=== PATIENT | female | born 1975 | race African-American/Black ===

== ENCOUNTER 2017-09-26 13:28 | Observation (INO) | payer OTHER ==
[2017-09-26] VITALS (8 sets, daily range): BP systolic 132–191; BP diastolic 62–92; PULSE 75–93; RESP 16–20; TEMP 96.7–99.3; O2SAT 94–98
[~2017-09-26] VITALS: Ht 167.6 cm; Wt 127.0 kg
[~2017-09-26 13:28] MED LIST: ATEN25TA PO; CIPR-9 PO; CLON0.1T PO; HYDR12.57 PO; LISI10TA3 PO; METO25TA3 PO; METR-1 PO
--- NOTE | 2017-09-26 14:01 | PD ---
HPI Chief Complaint: Headache Time Seen by Provider: 13:44 Travel History International Travel<30 days: No Contact w/Intl Traveler<30days: No Traveled to known affect area: No History of Present Illness HPI 42-year-old female presents to the emergency Department with complaint of intermittent chest pain since Saturday and headache since Saturday with worsening of headache yesterday. She was evaluated at [facility] on Saturday for her chest pain and headache. She said she had an EKG, chest x-ray, cardiac enzymes and were all within normal limits per the patient. She has history of benign brain tumors and has a neurosurgeon that she follows up within [place]. She doesn't remember the doctor's name or what her next appointment is. She did last have a CT scan of her brain in May and says her brain tumors or being observed. Reports chest pain is left-sided, on and off, describes as an ache, rates 7 out of 10, and radiates to her back. Denies heart palpitations or shortness of breath. Has never had a stress test. Denies tobacco use. Has had blood pressure and takes hydrochlorothiazide, amlodipine, clonidine, lisinopril, metipranolol and is complaining with medications. 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 Headache was gradual onset. Describes the headache as a throbbing sensation. Rates headache 9/10. Location is the front and the back of the head. Reports nausea without vomiting. Reports feeling tired and photophobia. Took BC powder with no relief of symptoms. Has no known allergies. Primary care provider is Dr. Effie Brown. History of hypertension. Has no other medical complaints. No known allergies. No other modifying factors or associated signs and symptoms. PFSH Past Medical History Hypertension: Yes Neurologic: Yes (brain tumors) ?: Unknown Tubal Ligation: Yes Past Surgical History Abdominal Surgery: Yes (HERNIA) Gynecologic Surgery: Yes (HYSTERECTOMY/TUBAL) Hysterectomy: Yes Social History Alcohol Use: Yes (occasional) Tobacco Use: No Substance Use: No Allergies-Medications (Allergen,Severity, Reaction): Coded Allergies: No Known Allergies (Unverified , 09/26/17) Reported Meds & Prescriptions Reported Meds & Active Scripts Active Reported Hydrochlorothiazide 12.5 Mg Cap 12.5 Mg PO DAILY Clonidine (Clonidine HCl) 0.1 Mg Tab 0.1 Mg PO BID Lisinopril 10 Mg Tab 10 Mg PO DAILY Metoprolol Tartrate 25 Mg Tab 25 Mg PO BID Atenolol 25 Mg Tab 12.5 Mg PO BID Review of Systems Except as stated in HPI: all other systems reviewed are Neg Physical Exam Narrative GENERAL: Well-nourished, well-developed black female patient, in no acute distress SKIN: Warm and dry. HEAD: Atraumatic. Normocephalic. No facial droop noted. Tongue midline. EYES: Pupils equal and round at 3 mm with brisk reaction. No scleral icterus. No injection or drainage. PERRLA. EOMI. ENT: Mucosa pink and moist. Airway patent. NECK: Trachea midline. No lymphadenopathy. CARDIOVASCULAR: Regular rate and rhythm. No murmur appreciated. RESPIRATORY: No accessory muscle use. Clear to auscultation. Breath sounds equal bilaterally. GASTROINTESTINAL: Obese. MUSCULOSKELETAL: No obvious deformities. No clubbing. No cyanosis. No edema. NEUROLOGICAL: Awake and alert. Oriented 3. No obvious cranial nerve deficits. Motor grossly within normal limits. Normal speech. No ataxia. No mid -line drift. Moves all extremities. 5/5 strength to all extremities. PSYCHIATRIC: Appropriate mood and affect; insight and judgment normal. Data Data Last Documented VS Vital Signs Date Time Temp Pulse Resp B/P (MAP) Pulse Ox O2 Delivery O2 Flow Rate FiO2 09/26/17 13:30 98.9 82 16 191/92 (125) [address] Brain W/O Iv Contrast(Rout) (09/26/17 ) Electrocardiogram (09/26/17 14:12) Basic Metabolic Panel (Bmp) (09/26/17 14:12) Ckmb (Isoenzyme) Profile (09/26/17 14:12) Complete Blood Count With Diff (09/26/17 14:12) Magnesium (Mg) (09/26/17 14:12) Prothrombin Time / Inr (Pt) (09/26/17 14:12) Act Partial Throm Time (Ptt) (09/26/17 14:12) Troponin I (09/26/17 14:12) Chest, Single Ap (09/26/17 14:12) Ecg Monitoring (09/26/17 14:12) Iv Access Insert/Monitor (09/26/17 14:12) Oximetry (09/26/17 14:12) Oxygen Administration (09/26/17 14:12) Sodium Chloride 0.9% Flush (Ns Flush) (09/26/17 14:15) Ketorolac Inj (Toradol Inj) (09/26/17 15:45) Admit Order (Ed Use Only) (09/26/17 15:42) Labs Laboratory Tests Test 09/26/17 14:20 White Blood Count 6.0 TH/MM3 Red Blood Count 4.14 MIL/MM3 Hemoglobin 11.5 GM/DL Hematocrit 34.5 % Mean Corpuscular Volume 83.4 FL Mean Corpuscular Hemoglobin 27.8 PG Mean Corpuscular Hemoglobin Concent 33.3 % Red Cell Distribution Width 13.6 % Platelet Count 377 TH/MM3 Mean Platelet Volume 7.1 FL Neutrophils (%) (Auto) 51.3 % Lymphocytes (%) (Auto) 35.7 % Monocytes (%) (Auto) 9.2 % Eosinophils (%) (Auto) 2.7 % Basophils (%) (Auto) 1.1 % Neutrophils # (Auto) 3.1 TH/MM3 Lymphocytes # (Auto) 2.1 TH/MM3 Monocytes # (Auto) 0.5 TH/MM3 Eosinophils # (Auto) 0.2 TH/MM3 Basophils # (Auto) 0.1 TH/MM3 CBC Comment DIFF FINAL Differential Comment Prothrombin Time 11.2 SEC Prothromb Time International Ratio 1.0 RATIO Activated Partial Thromboplast Time 27.6 SEC Blood Urea Nitrogen 10 MG/DL Creatinine 0.87 MG/DL Random Glucose 87 MG/DL Calcium Level 8.7 MG/DL Magnesium Level 2.0 MG/DL Sodium Level 135 MEQ/L Potassium Level 3.6 MEQ/L Chloride Level 101 MEQ/L Carbon Dioxide Level 26.4 MEQ/L Anion Gap 8 MEQ/L Estimat Glomerular Filtration Rate 86 ML/MIN Total Creatine Kinase 96 U/L Troponin I LESS THAN 0.02 NG/ML MDM Medical Decision Making Medical Screen Exam Complete: Yes Emergency Medical Condition: Yes Medical Record Reviewed: Yes Differential Diagnosis Acute headache, hypertension, chest pain, intracranial hemorrhage Narrative Course 42-year-old female with headache and chest pain. Was evaluated at [facility] on Saturday for same complaint. I spoke with Dr. Gautam and he agrees patient is stable For chest pain, CT of the head, and probable admission for observation to the chest pain center. IV site obtained. Chest pain protocol ordered. CT head ordered. 1541: CBC, BMP, coags unremarkable. Troponin less than 0.02. EKG was normal sinus rhythm and without ST elevation or depression. Chest x-ray and CT head concludes: Last 24 hours Impressions Chest X-Ray 09/26/17 1412 Signed Impressions: Service Date/Time: , September 26, 2017 14:33 - CONCLUSION: No acute disease. Adrian Celeste Jr., MD Head CT 09/26/17 0000 Signed Impressions: Service Date/Time: , September 26, 2017 14:51 - CONCLUSION: Normal examination. Adrian Celeste Jr., MD Toradol ordered. Patient admitted to chest pain center for observation. Physician Communication Physician Communication [employer] Diagnosis Primary Impression: Chest pain Qualified Codes: R07.9 - Chest pain, unspecified Additional Impression: Headache Qualified Codes: R51 - Headache Admitting Information Admitting Physician Requests: Observation Cyndie Rodrigez Sep 26, 2017 14:01
[2017-09-26] MEDS ORDERED: SODIUM CHLORIDE 0.9% FLUSH 10 ML FLUSH IVF PRN (14:15)
[2017-09-26 14:39] LABS: AUTOMATED NEUTROPHIL # 3.1 TH/MM3 (1.8-7.7); BASOPHIL # 0.1 TH/MM3 (0-0.2); BASOPHIL % 1.1 % (0.0-2.0); EOSINOPHIL # 0.2 TH/MM3 (0-0.4); EOSINOPHIL % 2.7 % (0.0-4.0); HEMATOCRIT 34.5 % (35.0-46.0); HEMOGLOBIN 11.5 GM/DL (11.6-15.3); LYMPH % 35.7 % (9.0-44.0); LYMPHOCYTE # 2.1 TH/MM3 (1.0-4.8); MEAN CELL VOLUME 83.4 FL (80.0-100.0); MEAN CORPUSCULAR HEMOGLOBIN 27.8 PG (27.0-34.0); MEAN CORPUSCULAR HGB CONC 33.3 % (32.0-36.0); MEAN PLATELET VOLUME 7.1 FL (7.0-11.0); MONO % 9.2 % (0.0-8.0); MONOCYTE # 0.5 TH/MM3 (0-0.9); NEUT % 51.3 % (16.0-70.0); PLATELET COUNT 377 TH/MM3 (150-450); RED BLOOD COUNT 4.14 MIL/MM3 (4.00-5.30); RED CELL DISTRIBUTION WIDTH 13.6 % (11.6-17.2)
[2017-09-26 14:54] LABS: BICARBONATE 26.4 MEQ/L (21.0-32.0); BLOOD UREA NITROGEN 10 MG/DL (7-18); CALCIUM 8.7 MG/DL (8.5-10.1); CHLORIDE 101 MEQ/L (98-107); CREATININE 0.87 MG/DL (0.50-1.00); GLOMERULAR FILTRATION RATE 86 ML/MIN (>89); GLUCOSE,RANDOM 87 MG/DL (74-106); SODIUM (NA) 135 MEQ/L (136-145)
[2017-09-26 14:58] LABS: TROPONIN I LESS THAN 0.02 NG/ML (0.02-0.05)
[2017-09-26 15:04] LABS: PROTHROMBIN TIME - PATIENT 11.2 SEC (9.8-11.6)
--- NOTE | 2017-09-26 15:08 | RADRPT ---
EXAM DATE/TIME: 09/26/2017 14:33 [facility] COMPARISON: No previous studies available for comparison. INDICATIONS : Shortness of breath. MEDICAL HISTORY : Brain tumors. Migrains. SURGICAL HISTORY : Hysterectomy. ENCOUNTER: Initial ACUITY: 1 day PAIN SCORE: 0/10 LOCATION: Bilateral chest FINDINGS: A single view of the chest demonstrates the lungs to be symmetrically aerated without evidence of mas s, infiltrate or effusion. The cardiomediastinal contours are unremarkable. Osseous structures are intact. CONCLUSION: No acute disease. Adrian Celeste Jr., MD on September 26, 2017 at 15:04 Board Certified Radiologist. This report was verified electronically.
--- NOTE | 2017-09-26 15:32 | RADRPT ---
EXAM DATE/TIME: 09/26/2017 14:51 [facility] COMPARISON: No previous studies available for comparison. INDICATIONS : Cephalgia. RADIATION DOSE: 56.35 CTDIvol (mGy) MEDICAL HISTORY : Hypertension. Hernia. SURGICAL HISTORY : Hysterectomy. Tubal ligation. ENCOUNTER: Initial ACUITY: 1 day PAIN SCALE: 5/10 LOCATION: cranial TECHNIQUE: Multiple contiguous axial images were obtained of the head. Using automated exposure control and adj ustment of the mA and/or kV according to patient size, radiation dose was kept as low as reasonably a chievable to obtain optimal diagnostic quality images. DICOM format image data is available electro nically for review and comparison. FINDINGS: CEREBRUM: The ventricles are normal for age. No evidence of midline shift, mass lesion, hemorrhage or acute in farction. No extra-axial fluid collections are seen. POSTERIOR FOSSA: The cerebellum and brainstem are intact. The 4th ventricle is midline. The cerebellopontine angle i s unremarkable. EXTRACRANIAL: The visualized portion of the orbits is intact. SKULL: The calvaria is intact. No evidence of skull fracture. CONCLUSION: Normal examination. Adrian Celeste Jr., MD on September 26, 2017 at 15:14 Board Certified Radiologist. This report was verified electronically.
[2017-09-26] MEDS ORDERED: KETOROLAC TROMETHAMINE 30 MG/ML (IVP) VIAL IV PUSH ONE (15:45)
[2017-09-26] MEDS ORDERED: ALPRAZolam 0.25 MG TAB PO PRN (16:45)
[2017-09-26] MEDS ORDERED: ONDANSETRON HCL 4 MG/2 ML VIAL IV PUSH PRN (16:45)
[2017-09-26] MEDS ORDERED: ACETAMINOPHEN 500 MG CPLT PO PRN (16:45)
[2017-09-26] MEDS ORDERED: SODIUM CHLORIDE 0.9% FLUSH 5 ML FLUSH IVF PRN (16:45)
--- NOTE | 2017-09-26 16:47 | HHI.HP ---
HPI Primary Care Physician Non-Staff Chief Complaint Chest pain and headache History of Present Illness This is a 42-year-old female that presents to ED via private vehicle with a complaint of a left-sided chest discomfort that radiates to the neck and back. This is been constantly there for 4 days. Found nothing to worsen or improve the discomfort. Has not noticed shortness of breath, nausea, or diaphoresis with the discomfort. She also complains of a frontal headache that she also has had for last several days. States she has history of meningiomas and is followed for this. Has had photophobia. Denies numbness tingling or weakness in extremities. Denies recent illness. Denies fevers or chills. Denies neck stiffness. Denies recent travel. Review of Systems General: Patient denies fevers, chills recent, and recent travel HEENT: Complains of frontal headache. Patient denies sore throat, difficulty swallowing. Cardiovascular: Has the chest discomfort as mentioned above. Denies sensation of heart beating rapidly or irregularly. No syncope. Denies diaphoresis. Respiratory: Denies shortness of breath or inspirational chest discomfort. Denies coughing wheezing or hemoptysis. GI: Patient denies nausea, vomiting, diarrhea, abdominal pain, bloody stools. Musculoskeletal: Patient denies joint pain or edema. Denies calf pain or edema. Neurovascular: Patient denies numbness, tingling, weakness in extremities. Complains of frontal headache. Endocrine: Denies polyuria and polydipsia. Hematologic: Denies easy bruising. Skin: Denies rash or itching. Past Family Social History Allergies: Coded Allergies: No Known Allergies (Unverified , 09/26/17) Past Medical History Hypertension, meningioma, history of hyperlipidemia but now medication for some time. Denies diabetes and known CAD. Past Surgical History Hysterectomy. Hernia repair. Reported Medications Reported Meds & Active Scripts Active Reported Hydrochlorothiazide 12.5 Mg Cap 12.5 Mg PO DAILY Clonidine (Clonidine HCl) 0.1 Mg Tab 0.1 Mg PO BID Lisinopril 10 Mg Tab 10 Mg PO DAILY Metoprolol Tartrate 25 Mg Tab 25 Mg PO BID Atenolol 25 Mg Tab 12.5 Mg PO BID Active Ordered Medications Current Medications Medications (Trade) Dose Ordered Sig/Paco Route Start Time Stop Time Status Last Admin (NS Flush) 2 ml UNSCH PRN IVF 09/26/17 14:15 Family History Denies family history of CAD. Social History Lifetime nonsmoker. Denies illicit drugs. Has occasional alcohol. Physical Exam Vital Signs Vital Signs Date Time Temp Pulse Resp B/P (MAP) Pulse Ox O2 Delivery O2 Flow Rate FiO2 09/26/17 16:38 09/26/17 16:00 80 17 132/62 (85) 97 Room Air 09/26/17 13:30 98.9 82 16 191/92 (125) 97 Physical Exam GENERAL: This is a well-nourished, well-developed patient, in no apparent distress. Patient speaks in clear complete sentences. Patient is pleasant. HEENT: Head is atraumatic and normocephalic. Neck is supple without lymphadenopathy and trachea is midline. No JVD or carotid bruits. CARDIOVASCULAR: Regular rate and rhythm without murmurs, gallops, or rubs. RESPIRATORY: Clear to auscultation. Breath sounds equal bilaterally. No wheezes , rales, or rhonchi. Chest wall is nontender. No use of accessory muscles. GASTROINTESTINAL: Abdomen is nontender, nondistended. Abdomen soft. No obvious pulsatile mass or bruit. No CVA tenderness. Strong femoral pulses bilaterally. Normal bowel sounds in all quadrants. MUSCULOSKELETAL: Patient is moving upper and lower extremities freely. No calf tenderness or edema, no Homans sign. Strong pulses in upper and lower extremities. NEUROLOGICAL: Patient is alert and oriented. Cranial nerves 2-12 are grossly intact. No focal deficits and speech is clear. SKIN: No rash and turgor is normal. Laboratory Laboratory Tests Test 09/26/17 14:20 White Blood Count 6.0 Red Blood Count 4.14 Hemoglobin 11.5 Hematocrit 34.5 Mean Corpuscular Volume 83.4 Mean Corpuscular Hemoglobin 27.8 Mean Corpuscular Hemoglobin Concent 33.3 Red Cell Distribution Width 13.6 Platelet Count 377 Mean Platelet Volume 7.1 Neutrophils (%) (Auto) 51.3 Lymphocytes (%) (Auto) 35.7 Monocytes (%) (Auto) 9.2 Eosinophils (%) (Auto) 2.7 Basophils (%) (Auto) 1.1 Neutrophils # (Auto) 3.1 Lymphocytes # (Auto) 2.1 Monocytes # (Auto) 0.5 Eosinophils # (Auto) 0.2 Basophils # (Auto) 0.1 CBC Comment DIFF FINAL Differential Comment Prothrombin Time 11.2 Prothromb Time International Ratio 1.0 Activated Partial Thromboplast Time 27.6 Blood Urea Nitrogen 10 Creatinine 0.87 Random Glucose 87 Calcium Level 8.7 Magnesium Level 2.0 Sodium Level 135 Potassium Level 3.6 Chloride Level 101 Carbon Dioxide Level 26.4 Anion Gap 8 Estimat Glomerular Filtration Rate 86 Total Creatine Kinase 96 Troponin I LESS THAN 0.02 Result Diagram: 09/26/17 1420 09/26/17 1420 Imaging Last 48 hours Impressions Chest X-Ray 09/26/17 1412 Signed Impressions: Service Date/Time: September 14:33 - CONCLUSION: No acute disease. Adrian Celeste Jr., MD Head CT 09/26/17 0000 Signed Impressions: Service Date/Time: September 14:51 - CONCLUSION: Normal examination. Adrian Celeste Jr., MD Course Initial EKG is sinus rhythm without significant ST segment depressions or elevations. Caprini VTE Risk Assessment Caprini VTE Risk Assessment: No/Low Risk (score <= 1) Caprini Risk Assessment Model Point Value = 1 Point Value = 2 Point Value = 3 Point Value = 5 Age 41-60 Minor surgery BMI > 25 kg/m2 Swollen legs Varicose veins or History of unexplained or recurrent spontaneous Oral contraceptives or hormone replacement Sepsis (< 1 month) Serious lung disease, including pneumonia (< 1 month) Abnormal pulmonary function Acute myocardial infarction Congestive heart failure (< 1 month) History of inflammatory bowel disease Medical patient at bed rest Age 61-74 Arthroscopic surgery Major open surgery (> 45 min) Laparoscopic surgery (> 45 min) Malignancy Confined to bed (> 72 hours) Immobilizing plaster cast Central venous access Age >= 75 History of VTE Family history of VTE Factor V Leiden Prothrombin [id number] Lupus anticoagulant Anticardiolipin antibodies Elevated serum homocysteine Heparin-induced thrombocytopenia Other congenital or acquired thrombophilia Stroke (< 1 month) Elective arthroplasty Hip, pelvis, or leg fracture Acute spinal cord injury (< 1 month) Prophylaxis Regimen Total Risk Factor Score Risk Level Prophylaxis Regimen 0-1 Low Early ambulation 2 Moderate Order ONE of the following: *Sequential Compression Device (SCD) *Heparin 5000 units SQ BID 3-4 Higher Order ONE of the following medications: *Heparin 5000 units SQ TID *Enoxaparin/Lovenox 40 mg SQ daily (WT < 150 kg, CrCl > 30 mL/min) *Enoxaparin/Lovenox 30 mg SQ daily (WT < 150 kg, CrCl > 10-29 mL/min) *Enoxaparin/Lovenox 30 mg SQ BID (WT < 150 kg, CrCl > 30 mL/min) AND/OR *Sequential Compression Device (SCD) 5 or more Highest Order ONE of the following medications: *Heparin 5000 units SQ TID (Preferred with Epidurals) *Enoxaparin/Lovenox 40 mg SQ daily (WT < 150 kg, CrCl > 30 mL/min) *Enoxaparin/Lovenox 30 mg SQ daily (WT < 150 kg, CrCl > 10-29 mL/min) *Enoxaparin/Lovenox 30 mg SQ BID (WT < 150 kg, CrCl > 30 mL/min) AND *Sequential Compression Device (SCD) Assessment and Plan Assessment and Plan * Chest pain: Patient will continue to have serial cardiac enzymes and EKGs for ruling out purposes. She has been seen by Dr. Pj Harry of cardiology in the chest pain center. She will likely proceed with a Lexiscan in the morning if she rules out. She'll be discharged home if her stress test was nonischemic with instructions to follow-up with local PCP. * Hypertension: We'll likely switch from metoprolol to labetalol. Otherwise continue her home medications. * Headache: Patient states that she has headaches in the past. Has history of meningiomas. Has follow-up with this. * Hyperlipidemia: Patient states that she has history of hyperlipidemia but has not been on medication for some time. She will need to have this followed up with her PCP to see if she needs to be restarted on treatment for hyperlipidemia. Patient is stable this time. She is agreeable to this plan. Jesus Brantley Sep 26, 2017 16:47
[2017-09-26] MEDS ORDERED: AMLO10TA2 PO (16:53)
[2017-09-26] MEDS: PANTOPRAZOLE SOD 40 MG DELAYED RELEASE TAB PO SCH (17:45)
[2017-09-26] MEDS: MORPHINE SULFATE 2 MG/ML INJ SQ PRN ×2 (17:46→23:46)
[2017-09-26 18:08] LABS: TROPONIN I LESS THAN 0.02 NG/ML (0.02-0.05)
[2017-09-26] MEDS: ACETAMINOPHEN/HYDROcodone 325 MG/7.5 MG TAB PO PRN (19:52)
[2017-09-26 21:32] LABS: TROPONIN I LESS THAN 0.02 NG/ML (0.02-0.05)
[2017-09-26] MEDS: cloNIDine HCL 0.1 MG TAB PO SCH (21:32)
[2017-09-26] MEDS: SODIUM CHLORIDE 0.9% FLUSH 5 ML FLUSH IVF SCH (21:32)
[2017-09-26] MEDS: LABETALOL HCL 200 MG TAB PO SCH (21:33)
[2017-09-27] VITALS (7 sets, daily range): BP systolic 123–142; BP diastolic 56–95; PULSE 76–84; RESP 16–19; TEMP 98.6–99.6; O2SAT 95–97
[2017-09-27] MEDS: ACETAMINOPHEN/HYDROcodone 325 MG/7.5 MG TAB PO PRN ×2 (06:46→14:09)
[2017-09-27] MEDS: LABETALOL HCL 200 MG TAB PO SCH (08:42)
[2017-09-27] MEDS: cloNIDine HCL 0.1 MG TAB PO SCH (08:43)
[2017-09-27] MEDS: PANTOPRAZOLE SOD 40 MG DELAYED RELEASE TAB PO SCH (08:44)
[2017-09-27] MEDS: SODIUM CHLORIDE 0.9% FLUSH 5 ML FLUSH IVF SCH (08:44)
[2017-09-27] MEDS ORDERED: MORPHINE SULFATE 2 MG/ML INJ IV PUSH PRN (09:00)
[2017-09-27] MEDS ORDERED: HYDROCHLOROTHIAZIDE 12.5 MG CAP PO SCH (09:00)
[2017-09-27] MEDS ORDERED: LISINOPRIL 10 MG TAB PO SCH (09:00)
[2017-09-27] MEDS ORDERED: ASPIRIN 325 MG TAB PO SCH (09:00)
[2017-09-27] MEDS ORDERED: REGADENOSON INJ 0.4 MG/5 ML SYR ONE (12:24)
--- NOTE | 2017-09-27 14:08 | RADRPT ---
EXAM DATE/TIME: 09/27/2017 11:51 [facility] COMPARISON: No previous studies available for comparison. INDICATIONS : Left chest pain radiating to the back. Angina. DOSE: 35.0 mCi Tc99m Myoview at stress. 11.0 mCi Tc99m Myoview at rest. 0.4 mg Lexiscan STRESS SYMPTOMS: Weird feeling and nausea. EJECTION FRACTION: 54% MEDICAL HISTORY : Hypertension. Benign brain tumors. SURGICAL HISTORY : Tubal ligation. Hysterectomy. ENCOUNTER: Initial ACUITY: 3 days PAIN SCALE: 7/10 LOCATION: Bilateral chest TECHNIQUE: The patient underwent pharmacologic stress with infusion of prescribed dose. Continuous ECG tracing was monitored during stress. Gated SPECT imaging was performed after stress and conventional SPECT i maging was performed at rest. The examination was performed on a SPECT/CT scanner, both attenuation and non-corrected datasets were reviewed. FINDINGS: DISTRIBUTION: The maximum perfused segment at stress is in the inferoseptal wall. Changing pattern of breast atten uation artifact between the stress and rest study PE.RFUSION STUDY: The pattern of perfusion at stress is within normal limits with regional variation of perfusion withi n 25%. No evidence of redistribution. The summed stress score zero.. GATED STUDY: There is intact wall motion and thickening without hypokinetic or dyskinetic segments. CONCLUSION: 1. No evidence of stress-induced ischemia. 2. Intact wall motion with 54% ejection fraction. RISK CATEGORY: Low (<1% Annual Mortality Rate) Adrian Reardon MD on September 27, 2017 at 14:04 Board Certified Radiologist. This report was verified electronically.
--- NOTE | 2017-09-27 14:43 | PD.CARD.PN ---
Subjective Subjective Remarks Still has headache. Lexiscan normal Objective Medications Current Medications Medications (Trade) Dose Ordered Sig/Paco Route Start Time Stop Time Status Last Admin (NS Flush) 2 ml UNSCH PRN IVF 09/26/17 16:45 (NS Flush) 2 ml BID IVF 09/26/17 21:00 09/26/17 21:32 (Tylenol) 500 mg Q4H PRN PO 09/26/17 16:45 ([place] 7.5-325 Mg) 1 tab Q4H PRN PO 09/26/17 16:45 09/27/17 14:09 (Zofran Inj) 4 mg Q6H PRN IV PUSH 09/26/17 16:45 09/27/17 08:39 (Protonix) 40 mg DAILY PO 09/26/17 17:00 09/27/17 08:44 (Aspirin) 325 mg DAILY PO 09/27/17 09:00 09/27/17 08:43 (Xanax) 0.25 mg Q8H PRN PO 09/26/17 16:45 09/26/17 23:51 (Catapres) 0.1 mg BID PO 09/26/17 21:00 09/27/17 08:43 (Microzide) 12.5 mg DAILY PO 09/27/17 09:00 09/27/17 08:43 (Prinivil) 10 mg DAILY PO 09/27/17 09:00 09/27/17 08:43 (Norvasc) 10 mg DAILY PO 09/27/17 09:00 09/27/17 08:43 (Trandate) 200 mg Q12HR PO 09/26/17 21:00 09/27/17 08:42 (Morphine Inj) 2 mg Q4H PRN IV PUSH 09/27/17 09:00 Vital Signs / I&O Vital Signs Date Time Temp Pulse Resp B/P (MAP) Pulse Ox O2 Delivery O2 Flow Rate FiO2 09/27/17 14:15 76 09/27/17 08:11 99.6 84 16 142/95 (111) 95 09/27/17 08:02 76 09/27/17 07:46 97 09/27/17 03:53 98.6 76 19 123/56 (78) 95 09/27/17 03:19 79 09/27/17 03:03 21 09/27/17 00:04 77 09/26/17 23:14 98.2 88 19 140/65 (90) 98 09/26/17 21:00 14 09/26/17 20:56 99.3 85 19 146/75 (98) 95 09/26/17 20:02 93 09/26/17 19:34 15 09/26/17 18:29 78 09/26/17 16:52 96.7 75 20 171/78 (109) 95 09/26/17 16:48 94 21 09/26/17 16:38 09/26/17 16:00 80 17 132/62 (85) 97 Room Air I/O 09/26/17 09/26/17 09/26/17 09/27/17 09/27/17 09/27/17 07:00 15:00 23:00 07:00 15:00 23:00 Intake Total 250 ml 480 ml Output Total 300 ml Balance -50 ml 480 ml Intake Oral 250 ml 480 ml Output Urine Total 300 ml # Voids 2 Physical Exam Lungs clear RRR no murmur Laboratory Laboratory Tests Test 09/26/17 17:35 09/26/17 20:43 Total Creatine Kinase 94 U/L 85 U/L Troponin I LESS THAN 0.02 NG/ML LESS THAN 0.02 NG/ML Imaging Last 24 hours Impressions Myocardial Perfusion Scan Nuc Med 09/27/17 0000 Signed Impressions: Service Date/Time: Wednesday, September 27, 2017 11:51 - CONCLUSION: 1. No evidence of stress-induced ischemia. 2. Intact wall motion with 54%% ejection fraction. RISK CATEGORY: Low (<1%% Annual Mortality Rate) Adrian Reardon MD Assessment and Plan Assessment and Plan Lexiscan normal no evidence of ischemia. OK to D/C home. Same meds and activity. F/U PCP Pj Harry MD Sep 27, 2017 14:43
--- NOTE | 2017-09-28 12:53 | EKG ---
Date Performed: 09/26/2017 Time Performed: 20:52:00 PTAGE: 42 years EKG: Sinus rhythm VOLTAGE CRITERIA FOR LVH ABNORMAL ECG NO CHANGE PREVIOUS TRACING : 09/26/2017 14.21 DOCTOR: Hernán Simeon Interpretating Date/Time 09/28/2017 12:52:39
--- NOTE | 2017-09-28 12:55 | EKG ---
Date Performed: 09/26/2017 Time Performed: 17:31:00 PTAGE: 42 years EKG: Sinus rhythm VOLTAGE CRITERIA FOR LVH ABNORMAL ECG NO SIG CHANGE NO PREVIOUS TRACING DOCTOR: Hernán Simeon Interpretating Date/Time 09/28/2017 12:55:14
--- NOTE | 2017-09-28 12:56 | EKG ---
Date Performed: 09/26/2017 Time Performed: 14:21:53 PTAGE: 42 years EKG: Sinus rhythm LOW QRS VOLTAGE IN PRECORDIAL LEADS MODERATE VOLTAGE CRITERIA FOR LVH, CONSIDER NORMAL VARIANT BORDE RLINE ECG NO PREVIOUS TRACING DOCTOR: Hernán Simeon Interpretating Date/Time 09/28/2017 12:55:37
--- NOTE | 2017-09-28 15:36 | TR ---
Date Performed: 09/27/2017 Time Performed: 12:51:08 DOCTOR: Hernán Simeon DRUG LIST: CLINICAL HISTORY: REASON FOR TEST: REASON FOR ENDING: OBSERVATION: CONCLUSION: Lexiscan stress test was performed under standard four minute protocol. Radionuclide was injected one minute prior to ending the test. No electrocardiographic abormalities were present to suggest ischemia. Nuclear imaging and interpretation are pending. COMMENTS:
== END 2017-09-27 16:55 | disposition home or self-care (01) ==
LOC: NEPD 13:28 → NEDA 15:44 → NEPFCDU 16:54
PROVIDERS: ADMIT Internal Medicine Cardiovascular Disease; ATTEND Internal Medicine Cardiovascular Disease
DX: R07.9 Chest pain, unspecified (principal); R51 Headache; R11.0 Nausea; R53.83 Other fatigue; H53.149 Visual discomfort, unspecified; I10 Essential (primary) hypertension; Z79.899 Other long term (current) drug therapy; Z86.011 Personal history of benign neoplasm of the brain; E78.5 Hyperlipidemia, unspecified; R94.31 Abnormal electrocardiogram [ECG] [EKG]
CPT/HCPCS: 70450; 71010; 78452; 80048; 82550; 83735; 84484; 85025; 85610; 85730; 93005; 93017; 96374; 96375; 96376; 99285; A9502; G0378; J1885; J2270; J2405; J2785